=== PATIENT | female | born 1965 | race African-American/Black ===

== ENCOUNTER → 2019-02-07 11:02 | Outpatient (CLI) | payer OTHER, SELFPAY ==
[2019-02-07 13:38] LABS: Hemoglobin A1c 5.6 % (4.2-6.3)
[2019-02-07 13:40] LABS: Progesterone Level 0.46 ng/mL (See Comment)
[2019-02-07 14:04] LABS: Estradiol 18.9 pg/mL; Follicle Stimulating Hormone 14.1 mIU/mL; Free T3 2.6 pg/mL (2.18-3.98); T4 Free Direct 0.84 ng/dL (0.76-1.46); Thyroid Stim Hormone (TSH) 0.78 uIU/mL (0.358-3.74)
[2019-02-09 14:01] LABS: DHEA Sulfate 85.8 ug/dL (29.4-220.5)
== END ==
PROVIDERS: Visit Provider Obstetrics & Gynecology
DX: N95.1 Menopausal and female climacteric states (principal)
CPT/HCPCS: 36415; 82533; 82627; 82670; 83001; 83036; 84144; 84403; 84439; 84443; 84481; 82626